=== PATIENT | female | born 1975 | race Caucasian/White ===

== ENCOUNTER 2016-10-27 11:36 | Emergency (ER) | payer BC ==
[2016-10-27 13:47] LABS: RED BLOOD COUNT 5.15 M/UL (4.00-5.10); WHITE BLOOD COUNT 6.1 K/UL (4.5-11.0)
[2016-10-27 14:11] LABS: BUN/CREATININE RATIO 13 (0-10)
== END 2016-10-27 17:15 | disposition home or self-care (01) ==
LOC: ER1 11:36
PROVIDERS: Physician Assistant
DX: M94.0 Chondrocostal junction syndrome [Tietze] (principal); R51 Headache
CPT/HCPCS: 70450; 71010; 80053; 82550; 82553; 83874; 84443; 84484; 85025; 85379; 93005; 96374; 99285; J2405